=== PATIENT | male | born 1990 | race Caucasian/White ===

== ENCOUNTER 2017-02-21 06:42 | Emergency (ER) | payer SELFPAY ==
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
[2017-02-21] MEDS ORDERED: SOLU-Medrol 125 MG VIAL IVP ONE (07:02)
[2017-02-21] MEDS ORDERED: DUONEB 0.5 MG/3 MG ONE ×2 (07:08→07:13)
[2017-02-21] MEDS ORDERED: SOLU-Medrol 125 MG VIAL ONE (07:09)
[2017-02-21] MEDS ORDERED: DUONEB 0.5 MG/3 MG NEB ONE ×2 (07:12→07:15)
[2017-02-21] MEDS ORDERED: DUONEB 0.5 MG/3 MG NEB SCH (07:15)
[2017-02-21 07:18] VITALS: BMI 31.2
[2017-02-21 07:19] LABS: BASOPHILS # (AUTO) 0.1 X10^3/uL (0.0-0.1); BASOPHILS % (AUTO) 0.9 % (0.2-1.0); EOSINOPHILS # (AUTO) 0.2 x10^3/uL (0.0-0.2); EOSINOPHILS % (AUTO) 1.7 % (0.9-2.9); HEMATOCRIT 47.5 % (42.0-54.0); HEMOGLOBIN 16.7 g/dL (13.5-18.0); LYMPHOCYTES # (AUTO) 4.9 X10^3/uL (1.3-2.9); LYMPHOCYTES % (AUTO) 37.4 % (21.0-51.0); MEAN CORPUSCULAR HEMOGLOBIN 30.8 pg (27.0-34.0); MEAN CORPUSCULAR HGB CONC 35.1 g/dL (33.0-35.0); MEAN CORPUSCULAR VOLUME 87.7 fL (80.0-100.0); MEAN PLATELET VOLUME 7.5 fL (7.4-11.0); MONOCYTES # (AUTO) 0.9 x10^3/uL (0.3-0.8); MONOCYTES % (AUTO) 6.6 % (0.0-13.0); NEUTROPHILS % (AUTO) 53.4 % (42.0-75.0); PLATELET COUNT 328 X10^3/uL (150.0-450.0); RED BLOOD COUNT 5.41 X10^6/uL (4.7-6.0); RED CELL DISTRIBUTION WIDTH 12.8 % (11.6-16.5)
[2017-02-21] MEDS ORDERED: NS 1000 ML 1,000 ML IV ONE (07:25)
[2017-02-21 07:30] LABS: ALANINE AMINOTRANSFERASE 59 Units/L (12-78); ALBUMIN 4.1 g/dL (3.4-5.0); ALKALINE PHOSPHATASE 128 Units/L (46-116); ASPARTATE AMINO TRANSFERASE 34 Units/L (15-37); BLOOD UREA NITROGEN 15 mg/dL (7-18); CALCIUM 9.1 mg/dL (8.5-10.1); CARBON DIOXIDE 16.7 mmol/L (21-32); CHLORIDE 103 mmol/L (98-107); COR NA(FOR HYPERGLY) 141 mmol/L (136-145); CREATININE 1.43 mg/dL (0.70-1.30); SODIUM 140 mmol/L (136-145); TOTAL PROTEIN 8.2 g/dL (6.4-8.2); eGFR BLACK RACES > 60 (>60); eGFR NON BLACK RACES > 60 (>60)
[2017-02-21] MEDS ORDERED: K-DUR TAB 20 MEQ PO ONE ×2 (07:49→07:52)
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
[2017-02-21] MEDS ORDERED: PHENERGAN INJ 25 MG IV ONE (07:51)
[2017-02-21] MEDS ORDERED: MORPHINE SULFATE INJ 4 MG IVP ONE (07:51)
[2017-02-21] MEDS ORDERED: NS 1000 ML 1,000 ML ONE (07:52)
[2017-02-21] MEDS ORDERED: PHENERGAN INJ 25 MG ONE (07:52)
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
[2017-02-21] MEDS ORDERED: MORPHINE SULFATE INJ 4 MG ONE (07:53)
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
[2017-02-21] MEDS ORDERED: MEDROL DOSEPAK 4 MG PER TAB PO NR (09:00)
[2017-02-21 09:01] VITALS: BP 124/60
== END 2017-02-21 09:05 | disposition home or self-care (01) ==
LOC: ER 06:42
DX: S02.2XXA Fracture of nasal bones, initial encounter for closed fracture (principal); S63.602A Unspecified sprain of left thumb, initial encounter; J45.21 Mild intermittent asthma with (acute) exacerbation; Y08.89XA Assault by other specified means, initial encounter
CPT/HCPCS: 36415; 70486; 71010; 73130; 80053; 85025; 94640; 96365; 96374; 96375; 99283; A4222; J2270; J2550; J2930; J7620